=== PATIENT | female | born 2000 | race Caucasian/White ===

== ENCOUNTER 2021-08-28 00:45 | Emergency (ER) | payer SELFPAY ==
[~2021-08-28] VITALS: Ht 167.6 cm; Wt 89.5 kg
[~2021-08-28 00:45] MED LIST: CLINDAMYCIN150 MG PO; DESYREL 50MG50 MG PO; INTUNIV3 MG PO
[2021-08-28 00:50] VITALS: BP 134/82; PULSE 101; TEMP 98.7
== END 2021-08-28 01:43 | disposition home or self-care (01) ==
LOC: COL.ER 00:45
DX: S60.222A Contusion of left hand, initial encounter (principal); F17.210 Nicotine dependence, cigarettes, uncomplicated; W23.1XXA Caught, crushed, jammed, or pinched between stationary objects, initial encounter

== ENCOUNTER 2021-12-27 22:04 | Emergency (ER) | payer SELFPAY ==
[~2021-12-27] VITALS: Ht 167.6 cm; Wt 93.2 kg
[2021-12-27 22:25] VITALS: TEMP 97.5
[2021-12-27 23:16] LABS: BASO % 0.4 % (0.0-2.0); EOS # 0.6 K/mm3 (0.0-0.7); EOS % 5.8 % (0.0-4.0); GRAN % 50.6 % (42.2-75.2); HEMATOCRIT 40.9 % (37.0-47.0); LYMPH # 3.6 K/mm3 (1.2-3.4); LYMPH % 36.2 % (20.0-51.0); MEAN CELL VOLUME 86 fl (80.0-100.0); MEAN CORPUSCULAR HEMOGLOBIN 29 pg (27-31); MEAN CORPUSCULAR HGB CONC 34 g/dl (33.0-37.0); MONO # 0.7 K/mm3 (0.1-0.6); MONO % 6.8 % (1.7-9.3); PLATELET COUNT 329 K/mm3 (130-400); RED BLOOD COUNT 4.78 M/mm3 (4.10-5.30); REDCELL DISTRIBUTION WIDTH-CV 12.9 % (11.5-14.5)
[2021-12-27 23:39] LABS: BILIRUBIN,TOTAL 0.2 mg/dL (0.2-1.2); C-REACTIVE PROTEIN 0.13 mg/dL (0.00-0.50); CALCIUM 9.3 mg/dL (8.4-10.2); CREATININE, serum 0.77 mg/dL (0.57-1.11); POTASSIUM 4.1 mmol/L (3.5-4.5); TOTAL PROTEIN 7.2 gm/dL (6.2-8.1)
[2021-12-27 23:54] LABS: COLLECTION METHOD CLEAN CATCH
[2021-12-28 00:24] LABS: MUCOUS Present (NOT PRESENT); PH 7 (5-8); URINE APPEARANCE Hazy (CLEAR/HAZY); URINE BACTERIA None Seen /hpf (NONE SEEN); URINE BILIRUBIN Negative (NEGATIVE); URINE BLOOD 3+ (NEGATIVE); URINE COLOR Yellow (YELLOW); URINE GLUCOSE Negative (NEGATIVE); URINE KETONE Negative (NEGATIVE); URINE LEUKOCYTE ESTERASE 1+ (NEGATIVE); URINE NITRATE Negative (NEGATIVE); URINE PROTEIN(semi-quant) 1+ (NEGATIVE); URINE RBC >50 /hpf (0-2); URINE UROBILINOGEN Negative (NEGATIVE)
[2021-12-28 01:20] VITALS: BP 144/78; PULSE 76
== END 2021-12-28 01:20 | disposition home or self-care (01) ==
LOC: COL.ER 22:04
PROVIDERS: Nurse Practitioner
DX: R10.84 Generalized abdominal pain (principal); R31.9 Hematuria, unspecified; F17.210 Nicotine dependence, cigarettes, uncomplicated; Z87.19 Personal history of other diseases of the digestive system; Z91.040 Latex allergy status; Z32.02 Encounter for pregnancy test, result negative
CPT/HCPCS: J7030

== ENCOUNTER 2022-01-31 01:36 | Emergency (ER) | payer OTHER ==
[~2022-01-31] VITALS: Ht 167.6 cm; Wt 86.4 kg
[2022-01-31 01:47] VITALS: TEMP 97.4
[2022-01-31 02:36] LABS: BASO % 0.4 % (0.0-2.0); EOS # 0.2 K/mm3 (0.0-0.7); EOS % 2.1 % (0.0-4.0); GRAN # 7.6 K/mm3 (1.4-6.5); GRAN % 66.4 % (42.2-75.2); HEMOGLOBIN 13.7 g/dl (12.5-16.0); LYMPH # 2.9 K/mm3 (1.2-3.4); LYMPH % 25.4 % (20.0-51.0); MEAN CELL VOLUME 84 fl (80.0-100.0); MEAN CORPUSCULAR HEMOGLOBIN 29 pg (27-31); MEAN CORPUSCULAR HGB CONC 34 g/dl (33.0-37.0); MEAN PLATELET VOLUME 9.1 fl (7.4-10.4); MONO # 0.6 K/mm3 (0.1-0.6); MONO % 5.4 % (1.7-9.3); PLATELET COUNT 307 K/mm3 (130-400); RED BLOOD COUNT 4.78 M/mm3 (4.10-5.30); REDCELL DISTRIBUTION WIDTH-CV 12.7 % (11.5-14.5)
[2022-01-31 02:55] LABS: ALBUMIN 4.1 gm/dL (3.5-5.0); BILIRUBIN,TOTAL 0.5 mg/dL (0.2-1.2); CALCIUM 9.3 mg/dL (8.4-10.2); CREATININE, serum 0.77 mg/dL (0.57-1.11); TOTAL PROTEIN 8.1 gm/dL (6.2-8.1)
[2022-01-31 03:40] LABS: COLLECTION METHOD CLEAN CATCH
[2022-01-31 03:50] LABS: MUCOUS Present (NOT PRESENT); PH 8 (5-8); URINE APPEARANCE Cloudy (CLEAR/HAZY); URINE BACTERIA Occasional /hpf (NONE SEEN); URINE BILIRUBIN Negative (NEGATIVE); URINE BLOOD 3+ (NEGATIVE); URINE COLOR Yellow (YELLOW); URINE GLUCOSE Negative (NEGATIVE); URINE KETONE Negative (NEGATIVE); URINE LEUKOCYTE ESTERASE 3+ (NEGATIVE); URINE NITRATE Negative (NEGATIVE); URINE PROTEIN(semi-quant) 1+ (NEGATIVE); URINE UROBILINOGEN Negative (NEGATIVE)
[2022-01-31] MEDS ORDERED: CIPRO 500MG TA500 MG PO (05:18)
[2022-01-31] MEDS ORDERED: NORCO 325 MG-51 TAB PO (05:18)
[2022-01-31 05:33] VITALS: BP 128/75; PULSE 88
== END 2022-01-31 05:33 | disposition home or self-care (01) ==
LOC: COL.ER 01:36
PROVIDERS: Personal Emergency Response Attendant
DX: N39.0 Urinary tract infection, site not specified (principal); F17.200 Nicotine dependence, unspecified, uncomplicated; Z91.040 Latex allergy status
CPT/HCPCS: J2270; J7030; Q9967

== ENCOUNTER 2022-02-18 09:34 | Day surgery (SDC) | payer OTHER ==
[~2022-02-18] VITALS: Ht 167.6 cm; Wt 89.9 kg
[~2022-02-18 09:34] MED LIST changes: +CIPRO 500MG TA500 MG PO; +NORCO 325 MG-51 TAB PO
[2022-02-18 10:39] VITALS: BP 114/76; PULSE 84; TEMP 97.2
[2022-02-18 12:10] VITALS: BP 107/72; PULSE 86; TEMP 97.5
--- NOTE | 2022-02-18 12:10 | NUR ---
PT TO BAY 5 PER CART FROM ENDO PROCEDURE ROOM. ASSISTED PT TO CHAIR. ATTEMPTING TO OBTAIN VS. PT UNCOOPERATIVE WITH O2 SAT PROBE. B/P, TEMP, PULSE OBTAINED AT THIS TIME. PT REFUSES TO PLACE SAT PROBE ON FINGER. PT REMOVING BP CUFF AND ATTEMPTING TO TAKE IV OUT OF R WRIST. PT CONTINUES TO STATE SHE IS WANTING TO LEAVE. DISCUSSED THE IMPORTANCE OF NEEDING RECOVERY VITAL SIGNS AND TO MONITOR HER.
--- NOTE | 2022-02-18 12:15 | NUR ---
PT IS REFUSING ANYTHING TO DRINK AND EAT AT THIS TIME. WILL CONTINUE TO MONITOR PT.
[2022-02-18 12:20] VITALS: BP 128/76; PULSE 85; TEMP 97.5
--- NOTE | 2022-02-18 12:20 | NUR ---
RECEIVED REPORT FROM SUNNY PEDRAZA AT THIS TIME. PT ALLOWED BP CUFF TO BE PLACED ON HER R LOWER LEG. PT CONTINUES TO STATE SHE IS WANTING TO LEAVE. EDUCATED PT THE IMPORTANCE OF RECOVERY TIME AND DR HUGGINS DISCUSSING HER FINDINGS WITH HER.
--- NOTE | 2022-02-18 12:25 | NUR ---
PT PULLING ON IV. IV DC'D AT THIS TIME.
--- NOTE | 2022-02-18 12:25 | NUR ---
PT CONTINUES TO REFUSE ANYTHING TO EAT AND DRINK. CONTINUES TO STATE SHE IS LEAVING AND GOING HOME. CONTINUE TO EDUCATE PT THE IMPORTANCE OF RECOVERY AND NEEDING TO FOLLOW THROUGH WITH IT.
[2022-02-18 12:30] VITALS: BP 132/65; PULSE 78
--- NOTE | 2022-02-18 12:30 | NUR ---
PT CONTINUES TO INSIST ON LEAVING. EDUCATED PT THE IMPORTANCE OF DR GROSS SPEAKING WITH HER. PT REQUESTING TO GET DRESSED AT THIS TIME.
--- NOTE | 2022-02-18 12:45 | NUR ---
DISCHARGE EDUCATION COMPLETED WITH PT AND HER GIRLFRIEND. VERBALIZED UNDERSTANDING OF HOME AND FOLLOW UP CARE. QUESTIONS WERE ANSWERED. DISCHARGE PAPERWORK GIVEN TO PT.
--- NOTE | 2022-02-18 12:55 | NUR ---
PT REFUSING WHEELCHAIR TO LEAVE OFF THE UNIT. PT AGREED TO LEAVE UNIT IN A WHEELCHAIR. PT DISCHARGED TO HOME WITH GIRLFRIEND PER PERSONAL VEHICLE.
[2022-02-18 13:59] VITALS: BP 114/62; PULSE 91
== END 2022-02-18 12:55 | disposition home or self-care (01) ==
LOC: SDCO 09:34
DX: D13.2 Benign neoplasm of duodenum (principal); D12.4 Benign neoplasm of descending colon; D12.5 Benign neoplasm of sigmoid colon; K92.1 Melena; K62.89 Other specified diseases of anus and rectum; K29.70 Gastritis, unspecified, without bleeding; K63.5 Polyp of colon; K62.5 Hemorrhage of anus and rectum
CPT/HCPCS: J0171; J2704; J3010; J7120